=== PATIENT | male | born 1995 | race Caucasian/White ===

== ENCOUNTER 2017-02-12 23:33 | Emergency (ER) | payer OTHER ==
[2017-02-12] MEDS ORDERED: PHENYLEPHRINE 0.5% NASAL 15 ML SPRAY ONE (23:53)
[2017-02-12] MEDS ORDERED: OXYMETAZOLINE 30 ML NASAL SPRAY ONE (23:58)
[2017-02-12] MEDS ORDERED: SILVER NITRATE APPLICATOR 1 APPL TP ONE (23:59)
[2017-02-13] MEDS ORDERED: SILVER NITRATE APPLICATOR 1 APPL TP ONE (00:04)
[2017-02-13] MEDS ORDERED: OXYMETAZOLINE 30 ML NASAL SPRAY EACHNARE ONE (00:04)
--- NOTE | 2017-02-13 00:08 | EDPHY ---
H & P Stated Complaint: left nosebleed Time Seen by Provider: 02/12/17 23:46 HPI/ROS: Chief Complaint: Nosebleed HPI: 21-year-old male started having his nose bleed at 10 o'clock tonight. Has a history of nosebleeds in the past. Denies any recent foreign bodies in his nose. No recent trauma. Does not snort any illicit drugs. No history of blood clotting disorder. Patient apply direct pressure without any improvement. ROS: 10 point Review of Systems is negative except as noted in the HPI. PMH: None Social History: No smoking, occasional alcohol, no recreational drug use Family History: non-contributory Physical Exam: Gen: Awake, Alert, No Distress HEENT: Nose: He has got brisk anterior bleeding from his left nostril. Eyes: PERRLA, EOMI Mouth: Moist mucosa Neck: Supple, no JVD Ext: no edema, non-tender Skin: no rash Neuro: CN II-XII intact, Sensation grossly intact, Strength 5/5 in bilateral upper and lower extremities - Personal History Current Tetanus Diphtheria and Acellular Pertussis (TDAP): Yes - Medical/Surgical History Hx Asthma: No Hx Chronic Respiratory Disease: No Hx Diabetes: No Hx Cardiac Disease: No Hx Renal Disease: No Hx Cirrhosis: No Hx Alcoholism: No - Social History Smoking Status: Never smoked Constitutional: Initial Vital Signs Temperature (C) 36.2 C 02/12/17 23:38 Heart Rate 83 02/12/17 23:38 Respiratory Rate 20 02/12/17 23:38 Blood Pressure 140/99 H 02/12/17 23:38 O2 Sat (%) 98 02/12/17 23:38 O2 Delivery Mode Room Air Allergies/Adverse Reactions: Penicillins Allergy (Verified 02/12/17 23:37) Home Medications: Medication Instructions Recorded NK [No Known Home Meds] 02/12/17 Medical Decision Making Procedures: Procedure: Epistaxis control. After verbal consent was obtained, the patient was anesthetized with Juan David- Synephrine then lidocaine with epinephrine. The anterior epistaxis was identified. The patient was treated with silver nitrate cautery. Following the procedure the patient was re-examined and the bleeding was well controlled. The patient tolerated the procedure well. The procedure was performed by myself. - Data Points Medications Given: Discontinued Medications Oxymetazoline HCl (Afrin Nasal Spurger) 2 sprays EACHNARE EDNOW ONE Stop: 02/13/17 00:05 Last Admin: 02/13/17 00:13 Dose: 2 sprays Silver Nitrate/Potassium Nitrate (Silver Nitrate Applicator) 1 each TP EDNOW ONE Stop: 02/13/17 00:05 Last Admin: 02/13/17 00:13 Dose: 1 each Departure - Departure Disposition: Home, Routine, Self-Care Clinical Impression: Acute anterior epistaxis Condition: Good Instructions: Nosebleed (ED) Additional Instructions: Do not place anything in your nose. You may use Vaseline around her nostrils to humidifier air. Use a humidifier fair, especially at night in the bedroom. Follow-up with your primary care physician in 3-4 days for further evaluation. Referrals: [facility] [Other] - As per Instructions
[2017-02-13 01:13] VITALS: BP 130/80; PULSE 54; RESP 16; TEMP 97.9; O2SAT 99
== END 2017-02-13 01:13 | disposition home or self-care (01) ==
PROC: 2Y41X5Z Packing of Nasal Region using Packing Material (ICD-10-PCS; principal; 2017-02-12)
DX: R04.0 Epistaxis (principal)